=== PATIENT | male | born 1940 | race Caucasian/White ===

== ENCOUNTER 2016-07-24 09:58 | Day surgery (SDC) | payer MEDICARE ==
[2016-02-20 13:58] VITALS: BMI 28.8
[2016-07-24] MEDS ORDERED: Lactated Ringer's 500 ML IV ONE (11:51)
[2016-07-24] MEDS ORDERED: Propofol 10 mg/ml Inj (20 ML) ONE (11:54)
[2016-07-24 12:22] VITALS: PULSE 67; TEMP 96.8; O2SAT 100
[2016-07-24 12:41] VITALS: BP 128/71; RESP 16
== END 2016-07-24 13:11 | disposition home or self-care (01) ==
LOC: H.ENDO 09:58
PROVIDERS: ATTEND Internal Medicine Gastroenterology
DX: K27.9 Peptic ulcer, site unspecified, unspecified as acute or chronic, without hemorrhage or perforation (principal); E78.5 Hyperlipidemia, unspecified; I10 Essential (primary) hypertension; K44.9 Diaphragmatic hernia without obstruction or gangrene; K27.7 Chronic peptic ulcer, site unspecified, without hemorrhage or perforation; K31.9 Disease of stomach and duodenum, unspecified
CPT/HCPCS: 43239; 88305; J2001; J2704; J3010; J7120